=== PATIENT | female | born 1960 | race Caucasian/White ===

== ENCOUNTER → 2023-07-19 12:43 | Outpatient (REF) | payer OTHER, SELFPAY | LOC: WDC 12:43 | PROVIDERS: ATTENDING PHYSICIAN Physician Assistant Medical | DX: Z12.31 Encounter for screening mammogram for malignant neoplasm of breast (principal) | CPT/HCPCS: 77063; 77067 ==

== ENCOUNTER → 2023-12-05 14:52 | Outpatient (REF) | payer OTHER, SELFPAY | LOC: WDC 14:52 | PROVIDERS: ATTENDING PHYSICIAN Physician Assistant Medical | DX: R92.333 Mammographic heterogeneous density, bilateral breasts (principal) | CPT/HCPCS: 76641 ==

== ENCOUNTER → 2023-12-21 13:48 | Outpatient (REF) | payer OTHER, SELFPAY | LOC: RAD 13:48 | PROVIDERS: ATTENDING PHYSICIAN Physician Assistant Medical | DX: M25.561 Pain in right knee (principal) | CPT/HCPCS: 73564 ==

== ENCOUNTER → 2024-08-13 14:56 | Outpatient (REF) | payer OTHER, SELFPAY | LOC: WDC 14:56 | PROVIDERS: ATTENDING PHYSICIAN Physician Assistant Medical | DX: M81.0 Age-related osteoporosis without current pathological fracture (principal); Z12.31 Encounter for screening mammogram for malignant neoplasm of breast | CPT/HCPCS: 77063; 77067; 77080 ==

== ENCOUNTER → 2024-12-24 09:00 | Outpatient (REF) | payer OTHER, SELFPAY | LOC: WDC 09:00 | PROVIDERS: ATTENDING PHYSICIAN Physician Assistant Medical | DX: R92.30 Dense breasts, unspecified (principal) | CPT/HCPCS: 76641 ==

== ENCOUNTER 2025-03-25 06:21 | Day surgery (SDC) | payer OTHER, SELFPAY | END 2025-03-25 10:06 | disposition home or self-care (01) | LOC: GI 06:21 | PROVIDERS: ATTENDING PHYSICIAN Internal Medicine | DX: Z12.11 Encounter for screening for malignant neoplasm of colon (principal); D12.3 Benign neoplasm of transverse colon; Z86.0100 Personal history of colon polyps, unspecified | CPT/HCPCS: 45390; 88305 ==

== ENCOUNTER 2025-03-26 08:49 | Day surgery (SDC) | payer OTHER, SELFPAY | END 2025-03-27 15:35 | disposition home or self-care (01) | LOC: GI 08:49 | PROVIDERS: ATTENDING PHYSICIAN Internal Medicine | DX: Z12.11 Encounter for screening for malignant neoplasm of colon (principal); Z86.0100 Personal history of colon polyps, unspecified; K63.3 Ulcer of intestine; K64.8 Other hemorrhoids; K63.5 Polyp of colon | CPT/HCPCS: 45380; 45381; 88305 ==

== ENCOUNTER 2025-04-14 17:27 | Emergency (ER) | payer OTHER, SELFPAY ==
[2025-04-14 17:29] VITALS: BP 157/82
--- NOTE | 2025-04-14 18:33 | ED.GENMED ---
History of Present Illness
General
Chief Complaint: Musculo-Skeletal Complaint
Time Seen by Provider: 04/14/25 18:23
History of Present Illness
History of Present Illness:
64-year-old female presents to the emergency department for evaluation of left knee pain, she was walking on her treadmill this morning when she felt a pop in the left knee and since that time has been unable to bear weight. Pain is to the anterior
tibial aspect of the knee. She notes that she was recently on a course of steroids for her left lumbar radiculopathy
Review of Systems
Review of Systems
Allergies reviewed?: Yes
All Other Systems: ROS reviewed and negative except as documented in HPI and ROS
Phy Exam
Physical Exam
Physical Exam:
GEN: Well appearing, NAD, WDWN
HEENT: Oral mucosa moist, no scleral icterus
Cardiac: Regular rate
Lung: No respiratory distress, no tachypnea
MSK: Mild swelling about the left knee, no obvious effusion, range of motion markedly limited secondary to pain, unable to perform adequate exam due to pain
Skin: Good color, no pallor or jaundice, no rashes
Neuro: AO x3, moves all extremities freely
Psych: Calm, cooperative
Course
Orders/Labs/Results
Orders:
Orders
04/14/25 17:34
CR Knee - Left 4 Or More View* Urgent
Comment:
Reason For Exam: Left knee pain
Vital Signs
Initial and Last Documented VS:
Initial Vital Signs
Temp Pulse Resp BP Pulse Ox
97.8 F 81 18 157/82 99
04/14/25 17:29 04/14/25 17:29 04/14/25 17:29 04/14/25 17:29 04/14/25 17:29
Last Documented Vital Signs
Temp Pulse Resp BP Pulse Ox
97.8 F 81 18 157/82 99
04/14/25 17:29 04/14/25 17:29 04/14/25 17:29 04/14/25 17:29 04/14/25 18:34
MDM/Problems Addressed
MDM/Problems Addressed:
Given mechanism of injury I suspect this may be a meniscus injury, x-rays independently interpreted by me are negative for fracture. Placed in knee immobilizer advise nonweightbearing status, the patient took it upon herself to make an orthopedic
appointment tomorrow for follow-up purposes, discussed pain control regimen
*Pulse Oximetry
SaO2: 99
Oxygen Mode of Delivery: Room air
Patient hypoxic: no
*Critical Care Note
Total Time (30-74mins, 75-104mins- exclusive of procedures): Not Applicable
ED Attending Note
-
Portions of this chart may have been created with voice recognition software.� Occasional wrong word or��sound alike� substitutions may have occurred due to the inherent limitations of voice recognition software.
Discharge Plan
Departure
Patient Disposition: Home (Routine Discharge)
Date of Disposition: 04/14/25
Time of Disposition: 18:33
Patient with high blood pressure during this ER visit?: No
Discharge Problem:
Acute internal derangement of left knee
Instructions: Knee Sprain (DC)
Activity Restrictions/Additional Instructions:
Aleve 440mg every 12 hours (two tablets)
Tramadol every 6-8 hours
Tylenol (acetaminophen) 1000mg with every dose of tramadol
Wear the knee immobilizer at all times unless otherwise directed by orthopedics, however please remove the straps to ice the knee when possible
See Orthopedics tomorrow as planned
Interventions
Interventions:
*Risk Screen - Suicide Last Done: 04/14/25 17:29
*Nursing Disposition Last Done: 04/14/25 18:39
ED-Musculoskeletal Assessment Last Done: 04/14/25 18:26
Discharge Date and Time
Print Language: TRINIDADIAN
== END 2025-04-14 19:34 | disposition home or self-care (01) ==
LOC: EMR 17:27
PROVIDERS: EMERGENCY PHYSICIAN Emergency Medicine; FAMILY PHYSICIAN Physician Assistant Medical
DX: M23.92 Unspecified internal derangement of left knee (principal)
CPT/HCPCS: 29505; 99283; 73564